=== PATIENT | male | born 1995 | race Caucasian/White ===

== ENCOUNTER 2019-08-05 21:15 | Emergency (ER) | payer OTHER ==
[~2019-08-05] VITALS: Ht 175.3 cm; Wt 75.9 kg
[2019-08-05 21:55] VITALS: BP 118/75
== END 2019-08-05 21:56 | disposition home or self-care (01) ==
LOC: ER 21:16
DX: S93.492A Sprain of other ligament of left ankle, initial encounter (principal); V89.2XXA Person injured in unspecified motor-vehicle accident, traffic, initial encounter; Y93.89 Activity, other specified; Y92.488 Other paved roadways as the place of occurrence of the external cause; Y99.8 Other external cause status
CPT/HCPCS: 73610; 73630; 99284

== ENCOUNTER 2024-05-08 14:26 | Emergency (ER) | payer MEDICAID ==
[~2024-05-08] VITALS: Ht 172.7 cm; Wt 80.2 kg
[2024-05-08 14:37] VITALS: BP 136/87; PULSE 66; RESP 15; O2SAT 96
[2024-05-08 18:39] VITALS: TEMP 98.1
== END 2024-05-08 18:40 | disposition home or self-care (01) ==
LOC: ER 14:26
DX: S93.492A Sprain of other ligament of left ankle, initial encounter (principal); X58.XXXA Exposure to other specified factors, initial encounter; Y93.67 Activity, basketball; Y92.89 Other specified places as the place of occurrence of the external cause; Y99.8 Other external cause status
CPT/HCPCS: 73718; 73721; 99284; L4360